=== PATIENT | male | born 1945 | race Caucasian/White ===

== ENCOUNTER 2018-12-27 20:39 | Emergency (ER) | payer OTHER, SELFPAY ==
[2018-12-27 20:42] VITALS: BP 134/70; PULSE 94; RESP 22; TEMP 36.7; O2SAT 93
--- NOTE | 2018-12-27 20:47 | ED_ITS ---
HPI - GI Bleed General Chief complaint: GI Bleed Stated complaint: GI Bleed Time Seen by Provider: 12/27/18 20:45 Source: patient, family and EMS Mode of arrival: EMS Limitations: no limitations History of Present Illness HPI Narrative: 73-year-old male brought in by EMS after the assisted-living facility where he is staying contacted EMS because the patient had an episode of dark colored stools. The patient has had a GI bleed in the past. Is currently on a PPI. Has had issues with anemia in the past. Has had blood transfusions in the past. Has been several years since any of these medical issues have hap pened. He is diabetic and is on insulin. Patient and family states that no definitive reason as to why he had a GI bleed in the past. He denies any anticoagulation. Denies alcohol use. Denies nonsteroidal anti-inflammatories. Apparently he had 1 episode of dark blood per rectum today. He did arrive on oxygen because EMS reported that he was in the high 80s and his oxygen saturations upon their arrival. His family states that he has been in the low 90s since the diagnosis of pneumonia over the winter. He is not currently on any oxygen at home. They have noticed that for the past several days/week he they have noticed that he has been more fatigued. He is not currently complaining of any abdominal pain but apparently has had some abdominal pain over the past several days. Related Data Home Medications Medication Instructions Recorded Confirmed Calcium 600 + D(3) 1 tab 12/27/18 acetaminophen 325 mg PO QID PRN 12/27/18 12/27/18 albuterol sulfate 2.5 mg INHALATION Q4H PRN 12/27/18 12/27/18 esomeprazole magnesium 20 mg PO BID 12/27/18 12/27/18 ferrous sulfate 325 mg PO BID 12/27/18 12/27/18 insulin NPH and regular human 50 unit SUBCUT BID 12/27/18 12/27/18 [Humulin 70/30 U-100 KwikPen] lisinopril-hydrochlorothiazide 1 tab PO DAILY 12/27/18 12/27/18 metformin 1,000 mg PO BID 12/27/18 12/27/18 sertraline 50 mg PO DAILY 12/27/18 12/27/18 tamsulosin 0.4 mg PO DAILY 12/27/18 12/27/18 Allergies Allergy/AdvReac Type Severity Reaction Status Date / Time No Known Drug Allergies Allergy Verified 12/27/18 21:01 Review of Systems Review of Systems Provided by patient and family at bedside Constitutional Reports fatigue and Denies fever(s) Cardiovascular Denies chest pain and Denies dyspnea Respiratory Denies dyspnea Gastrointestinal Gastrointestinal: Denies nausea and Denies vomiting Comments: Dark colored stools, some reports of abdominal pain but none currently Genitourinary Denies dysuria Musculoskeletal Denies myalgias and Denies arthralgias Integumentary/Breasts Denies rash Neurologic Denies behavioral changes Psychiatric Denies behavioral changes Endocrine Reports fatigue Hematologic/Lymphatic Denies easy bleeding and Denies easy bruising [facility] Medical History Anemia (Acute) Diabetes (Acute) GI bleed (Acute) Hypothyroid (Acute) Left bundle branch block (Acute) Prostate cancer (Acute) Surgical History S/P TURP (Acute) Social History marital status: unmarried,single housing: assisted living facility Exam Initial Vital Signs Initial Vital Signs: Vital Signs Temperature 98.1 F 12/27/18 20:42 Pulse Rate 94 H 12/27/18 20:42 Respiratory Rate 22 12/27/18 20:42 Blood Pressure 134/70 12/27/18 20:42 Pulse Oximetry 93 12/27/18 20:42 Const General: comfortable, well developed, well groomed and No acute distress Orientation: alert and awake [facility] Head: normal to inspection and normocephalic Resp Effort & Inspection: no cough, no grunting, not labored, no respiratory distress, no retractions and tachypneic Auscultation: clear to auscultation bilaterally Cardio Rate: regular rate Rhythm: regular rhythm Pulses: radial pulses present GI Inspection: non-distended Palpation: soft, No firm and No tender Rectal Exam: heme positive stool, No hemorrhoids and No lesions Skin Lesions: no lesions Rashes: no rashes Neuro General: alert and awake Speech: speech normal Extrem General: normal to inspection, capillary refill normal and No edema Psych Appearance: grossly normal and well kempt Scores GCS [place] coma scale eye opening: Spontaneous [place] coma scale verbal response: Orientated [place] coma scale motor response: Obey commands [place] coma scale total score: 15 Course Orders Ordered: ED Orders 12/27/18 20:50 Complete Blood Count AUTO DIFF Stat Comprehensive Metabolic Panel Stat Lipase Stat Partial Thromboplastin Time Stat Prothrombin Time INR Stat Type and Screen Stat 12/27/18 20:58 EKG-12 Lead Stat Discontinued Medications Sodium Chloride (Normal Saline 0.9%) 1,000 mls @ 100 mls/hr IV CONT CRISTOBAL Last Infusion: 12/27/18 22:47 Dose: 0 mls/hr Admin: 12/27/18 21:00 Dose: 100 mls/hr Vital Signs - 8 hr 12/27/18 20:42 12/27/18 21:30 12/27/18 22:48 Temperature 98.1 F Pulse Rate 94 H 91 H 78 Respiratory Rate 22 20 Blood Pressure 134/70 134/77 Blood Pressure [Left Arm] 131/68 Pulse Oximetry 93 92 93 MDM - GI Bleed Lab Data Attestation: I reviewed the patient's lab results. Result diagrams: 12/27/18 20:50 12/27/18 20:50 Lab Results 12/27/18 12/27/18 12/27/18 Range/Units 20:50 20:50 20:50 WBC 8.5 (4.5-11.0) X10^3/uL RBC 3.99 L (4.5-5.9) X10^6/uL Hgb 11.9 L (13.5-17.5) g/dL Hct 35.6 L (41-53) % MCV 89.3 (80-100) fL MCH 29.7 (26-34) PG MCHC 33.3 (30-36) % RDW 14.5 (11.6-14.8) % Plt Count 244 (150-400) X10^3/uL Neut % (Auto) 70.3 (50-75) % Lymph % (Auto) 14.7 L (25-40) % [place] % (Auto) 11.2 (3-14) % Eos % (Auto) 3.0 (2-4) % Baso % (Auto) 0.8 (0-2) % Neut # (Auto) 6000 (3618-8511) /uL Lymph # (Auto) 1200 (9791-4375) /uL [place] # (Auto) 1000 H (0-900) /uL Eos # (Auto) 300 (0-450) /uL Baso # (Auto) 100 (0-100) /uL PT 12.7 (10.1-12.7) SECONDS INR 1.1 (0.9-1.3) APTT 33 (26.4-36.2) SECONDS Sodium 139 (137-145) mmol/L Potassium 4.5 (3.4-5.1) mmol/L Chloride 104 (98-107) mmol/L Carbon Dioxide 25 (22-32) mmol/L BUN 32 H (9-20) mg/dL Creatinine 1.50 H (0.66-1.25) mg/dL Estimated GFR 45.9 L (>60) mL/min BUN/Creatinine Ratio 21.3 (6-22) Glucose 220 H (80-110) mg/dL Calcium 10.8 H (8.4-10.2) mg/dL Total Bilirubin 0.2 (0.2-1.3) mg/dL AST 31 (17-59) IU/L ALT 13 L (21-72) IU/L Alkaline Phosphatase 73 (38-126) U/L Total Protein 7.9 (6.3-8.2) g/dL Albumin 4.2 (3.5-5.0) g/dL Globulin 3.7 (1.7-4.1) g/dL Albumin/Globulin Ratio 1.1 (1.0-2.8) Lipase (23-300) U/L Blood Type Antibody Screen 12/27/18 12/27/18 Range/Units 20:50 20:50 WBC (4.5-11.0) X10^3/uL RBC (4.5-5.9) X10^6/uL Hgb (13.5-17.5) g/dL Hct (41-53) % MCV (80-100) fL MCH (26-34) PG MCHC (30-36) % RDW (11.6-14.8) % Plt Count (150-400) X10^3/uL Neut % (Auto) (50-75) % Lymph % (Auto) (25-40) % [place] % (Auto) (3-14) % Eos % (Auto) (2-4) % Baso % (Auto) (0-2) % Neut # (Auto) (8510-8966) /uL Lymph # (Auto) (8483-1939) /uL [place] # (Auto) (0-900) /uL Eos # (Auto) (0-450) /uL Baso # (Auto) (0-100) /uL PT (10.1-12.7) SECONDS INR (0.9-1.3) APTT (26.4-36.2) SECONDS Sodium (137-145) mmol/L Potassium (3.4-5.1) mmol/L Chloride (98-107) mmol/L Carbon Dioxide (22-32) mmol/L BUN (9-20) mg/dL Creatinine (0.66-1.25) mg/dL Estimated GFR (>60) mL/min BUN/Creatinine Ratio (6-22) Glucose (80-110) mg/dL Calcium (8.4-10.2) mg/dL Total Bilirubin (0.2-1.3) mg/dL AST (17-59) IU/L ALT (21-72) IU/L Alkaline Phosphatase (38-126) U/L Total Protein (6.3-8.2) g/dL Albumin (3.5-5.0) g/dL Globulin (1.7-4.1) g/dL Albumin/Globulin Ratio (1.0-2.8) Lipase 313 H (23-300) U/L Blood Type AB Negative Antibody Screen Negative ECG Data Attestation: I personally reviewed and interpreted this ECG as follows: Prior ECG tracings: not available for review Interpretation: Sinus rhythm Left bundle-branch block Ventricular rate of 91 Normal QRS Normal QTC No ST T wave changes MDM Narrative Medical decision making narrative: Patient is satting in the low 90s on room air. Has a benign abdominal exam. His heme-positive. Is somewhat anemic however certainly not to the point to where he would require blood transfusion. Appears to be at baseline mental status. Left bundle branch in the EKG is not new. He is on a PPI currently. Had a discussion with the patient's family about his symptoms. I do not feel that an admission to the hospital for loco rgent/urgent colonoscopy/EGD is warranted. We did discuss that if he continues to bleed in his blood counts to become lower than this may be necessary however I do feel that they can contact her primary doctor tomorrow to discuss getting this done as an outpatient. We did discuss strict return precautions. Expressed understanding and agreement with plan. Discharge Plan Departure Patient Disposition: Home Clinical Impression: Melena Discharge Date/Time: 12/27/18 22:48 Interventions: ED Discharge Assessment Last Done: 12/27/18 22:48 Instructions: Gastrointestinal Bleeding Activity Restrictions/Additional Instructions: Jovan is currently on a reflux medication. He should continue all of his medications as directed. He should avoid any aspirin or nonsteroidal anti-in flammatories such as Motrin/Naprosyn/ibuprofen. Tomorrow please contact his primary provider for a follow-up in to discuss a referral for an upper endoscopy and a colonoscopy. He can return to the emergency department for any new or worsening symptoms Prescriptions: No Action albuterol sulfate 2.5 mg /3 mL (0.083 %) Solution For Nebulization 2.5 mg INHALATION Q4H PRN (Reason: Shortness Of Breath) RF: 0 tamsulosin 0.4 mg Capsule 0.4 mg PO DAILY RF: 0 ferrous sulfate 325 mg (65 mg iron) Tablet 325 mg PO BID RF: 0 metformin 1,000 mg Tablet 1,000 mg PO BID RF: 0 lisinopril-hydrochlorothiazide 10-12.5 mg Tablet 1 tab PO DAILY RF: 0 sertraline 50 mg Tablet 50 mg PO DAILY RF: 0 esomeprazole magnesium 20 mg Capsule,Delayed Release(Dr/Ec) 20 mg PO BID RF: 0 Humulin 70/30 U-100 KwikPen 100 unit/mL (70-30) Insulin Pen 50 unit SUBCUT BID RF: 0 acetaminophen 325 mg Capsule 325 mg PO QID PRN (Reason: Pain (Scale Score 1-3)) RF: 0 Calcium 600 + D(3) 1 tab RF: 0
[2018-12-27] MEDS: SODIUM CHLORIDE 0.9% 1,000 ML 100 ML IV (21:00)
[2018-12-27 21:04] LABS: Add Manual Diff / Slide Review NO; Basophils Absolute Auto 100 /uL (0-100); Basophils Percent Auto 0.8 % (0-2); Eosinophils Absolute Auto 300 /uL (0-450); Hematocrit 35.6 % (41-53); Hemoglobin 11.9 g/dL (13.5-17.5); Lymphocytes Absolute Auto 1200 /uL (1100-4500); Lymphocytes Percent Auto 14.7 % (25-40); Mean Corpuscular HGB Conc 33.3 % (30-36); Mean Corpuscular Hemoglobin 29.7 PG (26-34); Mean Corpuscular Volume 89.3 fL (80-100); Monocytes Absolute Auto 1000 /uL (0-900); Monocytes Percent Auto 11.2 % (3-14); Neutrophils Absolute Auto 6000 /uL (1500-7000); Neutrophils Percent Auto 70.3 % (50-75); Platelet Count 244 X10^3/uL (150-400); Red Blood Cell Count 3.99 X10^6/uL (4.5-5.9); Red Cell Distribution Width 14.5 % (11.6-14.8); White Blood Cell Count 8.5 X10^3/uL (4.5-11.0)
[2018-12-27 21:13] LABS: INR 1.1 (0.9-1.3); Prothrombin Time 12.7 SECONDS (10.1-12.7)
[2018-12-27 21:16] LABS: PTT Partial Thromboplastin Tim 33 SECONDS (26.4-36.2)
[2018-12-27 21:18] LABS: Alanine Aminotransferase 13 IU/L (21-72); Albumin 4.2 g/dL (3.5-5.0); Albumin Globulin Ratio 1.1 (1.0-2.8); Alkaline Phosphatase 73 U/L (38-126); Aspartate Aminotransferase 31 IU/L (17-59); BUN Creatinine Ratio 21.3 (6-22); Bilirubin Total 0.2 mg/dL (0.2-1.3); Blood Urea Nitrogen 32 mg/dL (9-20); Calcium 10.8 mg/dL (8.4-10.2); Carbon Dioxide 25 mmol/L (22-32); Chloride 104 mmol/L (98-107); Estimated Glomerular Filt Rate 45.9 mL/min (>60); Globulin 3.7 g/dL (1.7-4.1); Glucose 220 mg/dL (80-110); HEMOLYSIS < 15 (0-50); Lipase 313 U/L (23-300); Potassium 4.5 mmol/L (3.4-5.1); Sodium 139 mmol/L (137-145); Total Protein 7.9 g/dL (6.3-8.2)
[2018-12-27 21:30] VITALS: BP 131/68; PULSE 91; O2SAT 92
[2018-12-27 22:48] VITALS: BP 134/77; PULSE 78; RESP 20; O2SAT 93
== END 2018-12-27 22:48 | disposition home or self-care (01) ==
PROVIDERS: Emergency Provider Emergency Medicine
DX: K92.1 Melena (principal); Z86.79 Personal history of other diseases of the circulatory system
CPT/HCPCS: 80053; 83690; 85025; 85610; 85730; 86850; 86900; 86901; 93005; 96360; 96361; 99283; 99284